=== PATIENT | female | born 1955 | race Caucasian/White ===

== ENCOUNTER → 2022-05-08 | Outpatient (CLI) | payer MEDICARE, OTHER | LOC: DX 09:20 | PROVIDERS: ATTEND Internal Medicine | DX: K21.9 Gastro-esophageal reflux disease without esophagitis (principal) | CPT/HCPCS: 74246 ==

== ENCOUNTER → 2022-06-29 | Outpatient (CLI) | payer MEDICARE, OTHER | LOC: MRI 09:57 | PROVIDERS: ATTEND Psychiatry & Neurology Clinical Neurophysiology | DX: G30.1 Alzheimer's disease with late onset (principal) | CPT/HCPCS: 70551 ==